=== PATIENT | male | born 1950 | race Caucasian/White ===

== ENCOUNTER → 2020-06-21 | Outpatient (CLI) | payer MEDICARE ==
[2020-06-21 21:08] LABS: Clam IgE 0.51 kU/L
[2020-06-21 21:10] LABS: Shrimp IgE 1.23 kU/L
[2020-06-22 14:12] LABS: Salmon IgE <0.10 kU/L (<0.10); Salmon IgE Class CLASS 0
== END | disposition home or self-care (01) ==
LOC: LABWHC1 12:24
PROVIDERS: ATTEND Allergy & Immunology
DX: T78.2XXA Anaphylactic shock, unspecified, initial encounter (principal)
CPT/HCPCS: 36415; 86003

== ENCOUNTER 2023-03-07 05:46 | Day surgery (SDC) | payer MEDICARE ==
[2023-03-05 14:54] VITALS: BMI 32.3
[~2023-03-07 05:46] MED LIST: LACTATED RINGERS 1,000 ML IV SCH
[2023-03-07 06:27] VITALS: TEMP 97.1
[2023-03-07] MEDS ORDERED: LIDOCAINE 2% INJ 20 MG/ML (2 ML VIAL) ONE (06:59)
[2023-03-07] MEDS ORDERED: PROPOFOL 10 MG/ML 20 ML VIAL IV ONE (06:59)
--- NOTE | 2023-03-07 07:29 | P.PCN ---
Date of Procedure: 03/07/23 Procedure(s) Performed: Brief history: Patient is a pleasant 73-year-old white male scheduled for an elective upper endoscopy as well as colonoscopy as a part of follow-up of large duodenal polyp that was endoscopy removed in 2018 at [facility]. He had multiple upper endoscopies followed by EMR the duodenal polyp and was completely removed and a follow-up upper endoscopy and constipation thousand was normal. He is also scheduled for colonoscopy for screening for colon cancer. Procedure performed: Esophagogastroduodenoscopy Colonoscopy with biopsy Preoperative diagnosis: Follow-up large duodenal polyp that was removed in 2018 Anesthesia: MAC Procedure: After informed consent was obtained from the patient was brought into the endoscopy unit and IV sedation was administered by anesthesia under continuous monitoring. Initially upper endoscopy was done. The Olympus GF 160 video endoscope was inserted inserted into the mouth and esophagus intubated without any difficulty and was gradually advanced into the stomach and duodenum and carefully examined. The bulb and second part of the duodenum appeared normal. No residual polyp noted in the second part of the duodenum where there was tattooing with Ani ink noted. The scope was then withdrawn into the stomach adequately insufflated with air and upon careful examination the antrum and body, cardia and fundus appeared normal. The scope was then withdrawn into the esophagus. I'LL hernia seen. The GE junction was located at 40 cm to the incisors. It appeared regular with no erythema erosions or ulcerations. Rest of the esophagus appeared normal. Patient tolerated the procedure well. At this time the patient continued to remain sedation. Initial digital rectal examination was normal. Olympus CF 160 video colonoscope was then inserted into the rectum and gradually advanced to the cecum without any difficulty. Careful examination was performed as the scope was gradually being withdrawn. The prep was excellent. The cecum, ascending colon, transverse colon, descending colon, appeared normal. In the sigmoid colon there was a 3 mm polyp removed by cold biopsy. Scattered sigmoid diverticula seen. Rest of the sigmoid colon and rectum appeared normal. Retroflexion was performed in the rectum and no lesions were noted. Patient tolerated the procedure well. Impression: 1. Upper endoscopy revealed no evidence of duodenal polyp and a small hiatal hernia 2. Colonoscopy revealed a 3 mm; polyp status post cold biopsy and scattered sigmoid diverticulosis Recommendations: Findings of this examination were discussed with the patient as well as his family. He was advised to follow with the biopsy results and have a repeat EGD and colonoscopy in 5 years
[2023-03-07 07:50] VITALS: BP 166/91; PULSE 56; RESP 17
== END 2023-03-07 08:25 | disposition home or self-care (01) ==
LOC: ORWHC2ENDO 05:46
PROVIDERS: ATTEND Internal Medicine Gastroenterology
DX: K63.5 Polyp of colon (principal); K31.7 Polyp of stomach and duodenum; K59.00 Constipation, unspecified; K57.30 Diverticulosis of large intestine without perforation or abscess without bleeding; K44.9 Diaphragmatic hernia without obstruction or gangrene; I10 Essential (primary) hypertension; E78.5 Hyperlipidemia, unspecified; J45.909 Unspecified asthma, uncomplicated; K21.9 Gastro-esophageal reflux disease without esophagitis; Z90.89 Acquired absence of other organs; Z98.890 Other specified postprocedural states; Z79.899 Other long term (current) drug therapy
CPT/HCPCS: 88305; 45380; 43235; J2704; J2001